=== PATIENT | female | born 2005 | race Caucasian/White ===

== ENCOUNTER 2024-06-12 05:25 | Inpatient (IN) | payer OTHER ==
[2024-06-12] MEDS: ELECTROLYTE IV ONE (06:00)
[2024-06-12] MEDS ORDERED: TERBUTALINE SULFATE 1 MG/1 ML VIAL SQ ONE (06:19)
[2024-06-12] MEDS: TERBUTALINE SULFATE 1 MG/1 ML VIAL SQ ONE (06:26)
[2024-06-12] MEDS ORDERED: AZITHROMYCIN IVPB 500 MG/250 ML BAG IVPB ONE (06:46)
[2024-06-12] MEDS ORDERED: morphine SULFATE/PF 1 MG/2 ML (2cc Syringe - QUVA) ONE (06:47)
[2024-06-12] MEDS ORDERED: PHENYLEPHRINE HCL 10 MG/1 ML SINGLE DOSE VIAL ONE (06:47)
[2024-06-12] MEDS ORDERED: OXYTOCIN 10 UNITS/ML VIAL ONE (06:47)
[2024-06-12] MEDS ORDERED: ONDANSETRON 4 MG/2 ML VIAL ONE ×2 (06:47→07:23)
[2024-06-12] MEDS ORDERED: FENTANYL CITRATE/PF 50 MCG/ML VIAL ONE (06:47)
[2024-06-12] MEDS ORDERED: KETOROLAC TROMETHAMINE 30 MG/1 ML VIAL ONE (06:47)
[2024-06-12 06:49] VITALS: BMI 23.4
[2024-06-12] MEDS: AZITHROMYCIN IVPB 500 MG in DEXTROSE 5%-WATER - 250 ML IVPB ONE (06:50)
[2024-06-12] MEDS: ELECTROLYTE-148 SOLN 1,000 ML IV SCH ×2 (07:05→20:17)
[2024-06-12 07:07] LABS: POTASSIUM 3.9 mmol/L (3.5-5.1)
[2024-06-12 07:08] LABS: BASO % 0.4 % (0-2.0); CALCIUM 8.5 mg/dL (8.5-10.1); EOS % 0.4 % (0-4.5); HEMATOCRIT 39.3 % (32.4-45.2); HEMOGLOBIN 13.6 GM/dL (10.7-15.3); LYMPH % 16.4 % (8-40); MCH 31.2 pg (25.7-33.7); MCHC 34.7 g/dl (32.0-36.0); MEAN CELL VOLUME 90.1 fl (80-96); MEAN PLT VOLUME 8.6 fl (7.5-11.1); MONO % 6.1 % (3.8-10.2); NEUT % 76.7 % (42.8-82.8); PLATELET COUNT 170 10^3/uL (134-434); RBC 4.36 M/mm3 (3.60-5.2); RDW 14.2 % (11.6-15.6); WHITE BLOOD COUNT 10.7 K/mm3 (4.0-10.0)
[2024-06-12 07:09] LABS: BLOOD UREA NITROGEN 9.5 mg/dL (7-18)
[2024-06-12 07:11] LABS: CREATININE 0.4 mg/dL (0.55-1.3)
[2024-06-12 07:12] LABS: INR 0.95 (0.83-1.09); PROTHROMBIN TIME (PATIENT) 10.8 SEC (9.7-13.0)
[2024-06-12 07:15] LABS: ACTIVATED PTT 31.6 SECONDS (25.2-36.5)
[2024-06-12] MEDS ORDERED: DEXAMETHASONE SOD PHOSPHATE 4 MG/1 ML VIAL ONE (07:23)
[2024-06-12] MEDS ORDERED: ONDANSETRON 4 MG/2 ML VIAL IVPUSH PRN (08:40)
[2024-06-12] MEDS ORDERED: ACETAMINOPHEN 325 MG TABLET (FP) PO PRN ×2 (08:40→15:55)
[2024-06-12] MEDS ORDERED: IBUPROFEN 600 MG TABLET (FP) PO PRN (08:40)
[2024-06-12 09:10] LABS: CORD BASE EXCESS -6.3 mmol/L (0-2); CORD HCO3 22.7 mmHg (20-29); CORD PCO2 59.1 mmHg (30-78); CORD pH 7.203 (7.14-7.44)
[2024-06-12 09:17] LABS: CORD BASE EXCESS -6.9 mmol/L (0-2); CORD HCO3 21.8 mmHg (20-29); CORD PCO2 56.2 mmHg (30-78); CORD pH 7.206 (7.14-7.44)
[2024-06-12] MEDS: OXYTOCIN 20 UNITS in 0.9% NS 20 UNIT/1,000 ML INFUS.BAG IV ONE (10:30)
[2024-06-12] MEDS ORDERED: OXYTOCIN 20 UNITS in 0.9% NS 20 UNIT/1,000 ML INFUS.BAG IV ONE (10:34)
[2024-06-12] MEDS ORDERED: METHYLERGONOVINE MALEATE 0.2 MG/1 ML AMP IM PRN (15:55)
[2024-06-12] MEDS: OXYTOCIN 20 UNITS in 0.9% NS 20 UNIT/1,000 ML INFUS.BAG IV SCH (17:43)
[2024-06-12 20:14] VITALS: RESP 18
[2024-06-13] MEDS ORDERED: oxyCODONE HCL 5 MG TABLET PO PRN (03:55)
[2024-06-13 06:51] LABS: BASO % 0.3 % (0-2.0); EOS % 1.1 % (0-4.5); HEMATOCRIT 31.8 % (32.4-45.2); HEMOGLOBIN 11.2 GM/dL (10.7-15.3); LYMPH % 25.7 % (8-40); MCH 31.7 pg (25.7-33.7); MEAN CELL VOLUME 90.5 fl (80-96); MEAN PLT VOLUME 8.8 fl (7.5-11.1); MONO % 9.4 % (3.8-10.2); NEUT % 63.5 % (42.8-82.8); PLATELET COUNT 149 10^3/uL (134-434); RBC 3.52 M/mm3 (3.60-5.2); RDW 13.8 % (11.6-15.6)
[2024-06-13] MEDS: IBUPROFEN 600 MG TABLET (FP) PO PRN (14:24)
[2024-06-13] MEDS ORDERED: BISACODYL 10 MG SUPP.RECT RC PRN (15:55)
[2024-06-14] MEDS: SIMETHICONE 80 MG TAB.CHEW (FP) PO PRN (11:52)
[2024-06-14 20:27] VITALS: TEMP 98.7
[2024-06-15 08:08] LABS: BASO % 0.5 % (0-2.0); EOS % 3.2 % (0-4.5); HEMATOCRIT 34.1 % (32.4-45.2); HEMOGLOBIN 11.8 GM/dL (10.7-15.3); LYMPH % 21.8 % (8-40); MCH 31.5 pg (25.7-33.7); MCHC 34.6 g/dl (32.0-36.0); MEAN CELL VOLUME 91.1 fl (80-96); MEAN PLT VOLUME 8.6 fl (7.5-11.1); MONO % 6.8 % (3.8-10.2); NEUT % 67.7 % (42.8-82.8); PLATELET COUNT 178 10^3/uL (134-434); RBC 3.74 M/mm3 (3.60-5.2); RDW 13.9 % (11.6-15.6); WHITE BLOOD COUNT 8.5 K/mm3 (4.0-10.0)
[2024-06-15 09:45] VITALS: BP 99/52; PULSE 61
== END 2024-06-15 13:18 | disposition home or self-care (01) | DRG 540 ==
LOC: JDEL 05:25 → JLDR 06:16 → J3W 11:10
PROVIDERS: ADMIT Obstetrics & Gynecology; ATTEND Obstetrics & Gynecology
PROC: 10D00Z1 Extraction of Products of Conception, Low, Open Approach (ICD-10-PCS; principal; 2024-06-12)
DX: O34.211 Maternal care for low transverse scar from previous cesarean delivery (principal); N85.8 Other specified noninflammatory disorders of uterus; Z3A.38 38 weeks gestation of pregnancy; Z37.0 Single live birth
CPT/HCPCS: 36415; 36600; 59409; 80048; 82803; 85025; 85610; 85730; 86780; 86850; 86900; 86901; 88307-TC; 94010